=== PATIENT | male | born 1995 | race Caucasian/White ===

== ENCOUNTER 2018-07-25 11:48 | Emergency (ER) | payer SELFPAY ==
--- NOTE | 2018-07-25 13:08 | RAD REPORT ---
EXAM DESCRIPTION: RAD - Knee Left 3 View - 07/25/2018 12:55 pm CLINICAL HISTORY: PAIN Twisting injury, pain and swelling COMPARISON: No comparisons FINDINGS: Cortical irregularity and lucency is seen in the region of the tibial spines, most compati ble with fracture, nondisplaced and nondepressed. A moderate lipoma hemarthrosis is present. No dislo cation evident.
--- NOTE | 2018-07-25 14:25 | EDPHYS ---
Physician Documentation [facility] Name: Kenton Linder Age: 23 yrs Sex: Male : 1995 Arrival Date: 07/25/2018 Time: 11:52 Bed 12 Private MD: ED Physician Gabriel Diaz HPI: 07/25 14:19 This 23 yrs old Male presents to ER via Ambulatory with complaints of Fall jr8 Injury, Knee Pain. 14:19 Details of fall: The patient fell from an upright position, while standing. Onset: The jr8 symptoms/episode began/occurred acutely, today. Associated injuries: The patient sustained left knee. Severity of symptoms: At their worst the symptoms were moderate, in the emergency department the symptoms are unchanged. The patient has not experienced similar symptoms in the past. The patient has not recently seen a physician. Patient stated that he slipped at work twisting left knee. [place] pop to left knee. Pain since incident . Historical: - Allergies: 12:26 Iodine; ss 12:26 Keflex; ss - PMHx: 12:26 None; ss - PSHx: 12:26 None; ss - Immunization history:: Adult Immunizations unknown. - Social history:: Smoking status: Patient uses tobacco products, chewing tobacco. - Ebola Screening: : Patient denies exposure to infectious person Patient denies travel to an Ebola-affected area in the 21 days before illness onset. ROS: 14:19 Eyes: Negative for injury, pain, redness, and discharge, ENT: Negative for injury, jr8 pain, and discharge, Neck: Negative for injury, pain, and swelling, Cardiovascular: Negative for chest pain, palpitations, and edema, Respiratory: Negative for shortness of breath, cough, wheezing, and pleuritic chest pain, Abdomen/GI: Negative for abdominal pain, nausea, vomiting, diarrhea, and constipation, Back: Negative for injury and pain, Skin: Negative for injury, rash, and discoloration, Neuro: Negative for headache, weakness, numbness, tingling, and seizure. 14:19 MS/extremity: Positive for decreased range of motion, pain, swelling, tenderness, of the left knee. Exam: 14:19 Eyes: Pupils equal round and reactive to light, extra-ocular motions intact. Lids and jr8 lashes normal. Conjunctiva and sclera are non-icteric and not injected. Cornea within normal limits. Periorbital areas with no swelling, redness, or edema. ENT: Nares patent. No nasal discharge, no septal abnormalities noted. Tympanic membranes are normal and external auditory canals are clear. Oropharynx with no redness, swelling, or masses, exudates, or evidence of obstruction, uvula midline. Mucous membranes moist. Neck: Trachea midline, no thyromegaly or masses palpated, and no cervical lymphadenopathy. Supple, full range of motion without nuchal rigidity, or vertebral point tenderness. No Meningismus. Cardiovascular: Regular rate and rhythm with a normal S1 and S2. No gallops, murmurs, or rubs. Normal PMI, no JVD. No pulse deficits. Respiratory: Lungs have equal breath sounds bilaterally, clear to auscultation and percussion. No rales, rhonchi or wheezes noted. No increased work of breathing, no retractions or nasal flaring. Abdomen/GI: Soft, non-tender, with normal bowel sounds. No distension or tympany. No guarding or rebound. No evidence of tenderness throughout. Back: No spinal tenderness. No costovertebral tenderness. Full range of motion. Skin: Warm, dry with normal turgor. Normal color with no rashes, no lesions, and no evidence of cellulitis. Neuro: Awake and alert, GCS 15, oriented to person, place, time, and situation. Cranial nerves II-XII grossly intact. Motor strength 5/5 in all extremities. Sensory grossly intact. Cerebellar exam normal. Normal gait. 14:19 Musculoskeletal/extremity: Extremities: grossly normal except: noted in the left knee: decreased ROM, pain, swelling, tenderness, ROM: intact in all extremities, full active range of motion, limited passive range of motion, limited active range of motion due to pain, limited passive range of motion due to pain, Circulation is intact in all extremities. Sensation intact. Vital Signs: 12:26 BP 124 / 75; Pulse 79; Resp 18; Temp 98.4(TE); Pulse Ox 99% on R/A; Weight 158.76 kg; ss Height 6 ft. 7 in. (200.66 cm); Pain 6/10; 13:30 BP 122 / 70; Pulse 77; Resp 17; Temp 98.4; Pulse Ox 100% on R/A; sg 14:20 BP 124 / 70; Pulse 77; Resp 17; Pulse Ox 99% on R/A; sg 12:26 Body Mass Index 39.43 (158.76 kg, 200.66 cm) ss Procedures: 14:19 Splinting: Splint applied to left knee using knee immobilizer, applied by nurse. jr8 Examined by me, post splint application: neurovascular intact, 2+ distal pulses palpable, brisk capillary refill noted, Patient tolerated well. Crutch training provided to patient and/or family. Return demonstration given. MDM: 13:49 Patient medically screened. jr8 14:19 Data reviewed: vital signs, nurses notes, radiologic studies, plain films. Data jr8 interpreted: Pulse oximetry: on room air is 99 %. Interpretation: normal. Counseling: I had a detailed discussion with the patient and/or guardian regarding: the historical points, exam findings, and any diagnostic results supporting the discharge/admit diagnosis, radiology results, the need for outpatient follow up, a orthopedic surgeon, to return to the emergency department if symptoms worsen or persist or if there are any questions or concerns that arise at home. 07/25 12:28 Order name: XRAY Knee LEFT 3 view; Complete Time: 13:49 ss 07/25 14:03 Order name: Knee Immobilizer; Complete Time: 14:05 jr8 07/25 14:04 Order name: Crutches; Complete Time: 14:05 jr8 Administered Medications: No medications were administered Disposition: 07/25/18 14:24 Discharged to Home. Impression: Proximal Tibial Spine Fracture Left knee . - Condition is Stable. - Discharge Instructions: Tibial Fracture, Adult. - Prescriptions for Ibuprofen 800 mg Oral Tablet - take 1 tablet by ORAL route every 12 hours As needed take with food; 20 tablet. Tylenol- Codeine #3 300-30 mg Oral Tablet - take 2 tablets by ORAL route every 6 hours As needed; 20 tablet. - Work release form, Medication Reconciliation Form, Thank You Letter, Antibiotic Education, Prescription Opioid Use form. - Follow up: Kong Casanova MD; When: 2 - 3 days; Reason: Recheck today's complaints, Continuance of care, Re-evaluation by your physician. - Problem is new. - Symptoms have improved. Addendum: 07/26/2018 16:39 Co-signature as Attending Physician, Gabriel Diaz MD. g s Signatures: Dispatcher [employer] Marva Shelton RN RN dm5 Nga Salazar RN RN ss Luca Bruno PA PA jr8 Gabriel Diaz MD MD gs Corrections: (The following items were deleted from the chart) 07/25 14:39 14:24 07/25/2018 14:24 Discharged to Home. Impression: Proximal Tibial Spine Fracture dm5 Left knee . Condition is Stable. Forms are Work release form, Medication Reconciliation Form, Thank You Letter, Antibiotic Education, Prescription Opioid Use. Follow up: Kong Casanova; When: 2 - 3 days; Reason: Recheck today's complaints, Continuance of care, Re-evaluation by your physician. Problem is new. Symptoms have improved. jr8
--- NOTE | 2018-07-25 14:25 | ER ---
Nurse's Notes [facility] Name: Kenton Linder Age: 23 yrs Sex: Male : 1995 Arrival Date: 07/25/2018 Time: 11:52 Bed 12 Private MD: Diagnosis: Proximal Tibial Spine Fracture Left knee Presentation: 07/25 12:24 Presenting complaint: Patient states: Twisted L knee approximately 1.5 hours ago. Pt is ss concerned that he may have tore some ligaments as he heard a pop. Transition of care: patient was not received from another setting of care. Onset of symptoms was July 25, 2018. Risk Assessment: Do you want to hurt yourself or someone else? Patient reports no desire to harm self or others. Initial Sepsis Screen: Does the patient meet any 2 criteria? No. Patient's initial sepsis screen is negative. Does the patient have a suspected source of infection? No. Patient's initial sepsis screen is negative. Care prior to arrival: None. 12:24 Method Of Arrival: Ambulatory 12:24 Acuity: MARINA 4 ss Historical: - Allergies: 12:26 Iodine; ss 12:26 Keflex; ss - PMHx: 12:26 None; ss - PSHx: 12:26 None; ss - Immunization history:: Adult Immunizations unknown. - Social history:: Smoking status: Patient uses tobacco products, chewing tobacco. - Ebola Screening: : Patient denies exposure to infectious person Patient denies travel to an Ebola-affected area in the 21 days before illness onset. Screenin:55 Abuse screen: Denies threats or abuse. Denies injuries from another. Nutritional sg screening: No deficits noted. Tuberculosis screening: No symptoms or risk factors identified. Never had TB. Fall Risk None identified. Assessment: 13:54 General: Appears in no apparent distress. comfortable, well groomed, well developed, sg well nourished, Behavior is calm, cooperative, appropriate for age. Pain: Complains of pain in left knee Quality of pain is described as tender. Neuro: Level of Consciousness is awake, alert, obeys commands. Cardiovascular: Patient's skin is warm and dry. Chest pain is denied. Respiratory: Airway is patent Respiratory effort is even, unlabored, Respiratory pattern is regular, symmetrical. GI: Abdomen is round non-distended. : No signs and/or symptoms were reported regarding the genitourinary system. EENT: No signs and/or symptoms were reported regarding the EENT system. Derm: Skin is pink, warm \T\ dry. Musculoskeletal: Circulation, motion, and sensation intact. Range of motion: intact in all extremities, Swelling absent. Vital Signs: 12:26 BP 124 / 75; Pulse 79; Resp 18; Temp 98.4(TE); Pulse Ox 99% on R/A; Weight 158.76 kg; ss Height 6 ft. 7 in. (200.66 cm); Pain 6/10; 13:30 BP 122 / 70; Pulse 77; Resp 17; Temp 98.4; Pulse Ox 100% on R/A; sg 14:20 BP 124 / 70; Pulse 77; Resp 17; Pulse Ox 99% on R/A; sg 12:26 Body Mass Index 39.43 (158.76 kg, 200.66 cm) ED Course: 11:52 Patient arrived in ED. rg4 12:25 Triage completed. ss 12:26 Arm band placed on right wrist. ss 12:55 XRAY Knee LEFT 3 view In Process Unspecified. EDMS 13:46 Luca Bruno PA is PHCP. jr8 13:46 Gabriel Diaz MD is Attending Physician. jr8 13:53 Torin Philip, OSCAR is Primary Nurse. sg 13:55 Patient has correct armband on for positive identification. Bed in low position. Call sg light in reach. Side rails up X2. assistant branch manager on. Pulse ox on. NIBP on. 13:55 No provider procedures requiring assistance completed. Patient did not have IV access sg during this emergency room visit. 13:56 Affected limb iced. sg 14:10 Crutch training done. Knee immobilizer applied on left knee. sg 14:24 Kong Casanova MD is Referral Physician. jr8 Administered Medications: No medications were administered Outcome: 14:24 Discharge ordered by . jr8 14:30 Discharged to home ambulatory, with crutches, with family. sg 14:30 Condition: good 14:30 Discharge instructions given to patient, Instructed on discharge instructions, follow up and referral plans. no drinking with medication, no driving heavy equipment, medication usage, safety practices, crutch walking, immobilizer care Demonstrated understanding of instructions, follow-up care, medications, crutch walking, Prescriptions given X 2. 14:39 Patient left the ED. dm5 Signatures: Dispatcher [employer] EDMarva Dennison RN RN dm5 Torin Philip RN RN sg Smirch, Shelby, RN RN ss Roszak, Josh, PA PA jr8 Yamilet Kim4
== END 2018-07-25 14:39 | disposition home or self-care (01) ==
LOC: ER 11:48
DX: S82.112A Displaced fracture of left tibial spine, initial encounter for closed fracture (principal); W01.0XXA Fall on same level from slipping, tripping and stumbling without subsequent striking against object, initial encounter; Y93.9 Activity, unspecified; Y92.89 Other specified places as the place of occurrence of the external cause; Z72.0 Tobacco use; Z88.8 Allergy status to other drugs, medicaments and biological substances; Z91.048 Other nonmedicinal substance allergy status
CPT/HCPCS: 99284